=== PATIENT | female | born 1965 | race Caucasian/White ===

== ENCOUNTER → 2023-08-27 09:39 | Outpatient (REF) | payer OTHER, SELFPAY ==
[2023-08-27 10:23] LABS: INR 1.07; PT 13.8 Sec (11.4-14.6)
== END ==
LOC: REG 09:39
PROVIDERS: ATTENDING PHYSICIAN Internal Medicine Hematology & Oncology; FAMILY PHYSICIAN Student in an Organized Health Care Education/Training Program
DX: D68.61 Antiphospholipid syndrome (principal); Z01.818 Encounter for other preprocedural examination
CPT/HCPCS: 36415; 85610

== ENCOUNTER 2024-02-01 06:41 | Day surgery (SDC) | payer OTHER, SELFPAY ==
[2024-02-01] VITALS (7 sets, daily range): BP systolic 107–140; BP diastolic 75–95; BMI 38.1
[2024-02-01 13:03] LABS: Glucose - Point of Care 105 mg/dl (70-99)
[2024-02-01 15:23] LABS: Glucose - Point of Care 91 mg/dl (70-99)
[2024-02-01 17:26] LABS: Glucose - Point of Care 92 mg/dl (70-99)
== END 2024-02-01 18:30 | disposition home or self-care (01) ==
LOC: SDS 06:41
PROVIDERS: ATTENDING PHYSICIAN Internal Medicine Gastroenterology
DX: K63.89 Other specified diseases of intestine (principal); Z86.010 Personal history of colon polyps; K64.0 First degree hemorrhoids
CPT/HCPCS: 45390; 88305; 82962

== ENCOUNTER 2024-03-30 11:04 | Day surgery (SDC) | payer OTHER, SELFPAY ==
[2024-03-21 10:35] LABS: Hematocrit 41.4 % (37.0-47.0); Hemoglobin 14.3 g/dL (12.0-16.0); Mean Corp Hgb Conc. 34.5 g/dL (33.0-37.0); Mean Corpuscular Hgb 29.8 pg (27.0-31.0); Mean Corpuscular Volume 86.3 fL (81.0-99.0); Mean Platelet Volume 10.5 fL (7.4-10.4); Platelet Count 303 10^3/uL (130-400); Red Cell Dist. Width 13.2 % (11.5-14.5); White Blood Cell Count 5.2 10^3/uL (4.8-10.8)
[2024-03-21 10:37] VITALS: BMI 35.1
[2024-03-21 10:46] LABS: INR 2.25; PT 24.8 Sec (11.4-14.6)
[2024-03-21 10:47] LABS: APTT 59.9 Sec (23.4-35.0)
[2024-03-21 11:52] LABS: ALT (SGPT) 68 U/L (0-35); AST (SGOT) 46 U/L (14-36); Albumin 4.5 g/dl (3.5-5.0); Alkaline Phosphatase 65 U/L (38-126); Blood Urea Nitrogen 14 mg/dl (7-17); Calcium 10.1 mg/dl (8.4-10.2); Carbon Dioxide 32 mmol/L (22-30); Chloride 99 mmol/L (98-107); Estimated Creatinine Clearance 73 ml/min; Glucose 90 mg/dl (70-99); Potassium 4.1 mmol/L (3.5-5.1); Sodium 141 mmol/L (135-145); Total Bilirubin 0.9 mg/dl (0.2-1.3); Total Protein 7.7 g/dl (6.3-8.2); eGFR > 60.00
[2024-03-22 10:44] LABS: Glycohemoglobin (HgbA1c) 5.7 % (4.0-5.6)
--- NOTE | 2024-03-22 15:09 | PTCARENOTE ---
Abnormal EKG on 03/22/24. Dr. Gagnon made aware. No interventions needed.
--- NOTE | 2024-03-27 08:06 | PTCARENOTE ---
Patients 03/21 INR 2.25, PTT 52.9- Mary @ Dr. Marcos office notified
[2024-03-30] VITALS (16 sets, daily range): BP systolic 82–139; BP diastolic 45–98; BMI 35.1
[2024-03-30 11:18] LABS: Glucose - Point of Care 106 mg/dl (70-99)
[2024-03-30] MEDS: ENTEREG 12 MG PO (11:44)
[2024-03-30] MEDS: NEURONTIN 600 MG PO (11:45)
[2024-03-30] MEDS: TYLENOL 1000 MG PO (11:45)
[2024-03-30 13:17] LABS: Glucose - Point of Care 92 mg/dl (70-99)
[2024-03-30] MEDS: LOVENOX 40 MG SC (14:30)
--- NOTE | 2024-03-30 16:54 | W.IMMPOSTOP ---
Addendum entered and electronically signed by Alphonse Gill MD 03/30/24 17:10:
Patient's sister, Trena, updated via phone.
Original Note:
Surgical Immed Post Op Note
-
Primary Surgeon: Rodrigo Gill MD
Assisting Surgeon: ALLA Ashley
Pre-op Diagnosis: appendiceal mucocele
Post-op Diagnosis: same
Procedure Performed: 1) robotic appendectomy (to include a cuff of cecum) 2) intraoperative colonoscopy
Anesthesia Type: general plus local
Specimen / Cultures: appendix and cuff of cecum
Estimated Blood Loss: 5 cc
Complications: no immediate
Operative Findings: 1) some fullness at base of appendix 2) no obvious intraperitioneal nodules or mucus
Christensen in bladder.
Sending to med surg.
Holding anticoagulation for now.
[2024-03-30] MEDS: DILAUDID 0.5 MG IV (17:13)
[2024-03-30] MEDS: TORADOL 10 MG IV (18:24)
[2024-03-30] MEDS: TYLENOL 650 MG PO (20:25)
[2024-03-30] MEDS: LIPITOR 40 MG PO (21:37)
[2024-03-30] MEDS: CATAPRES 0.1 MG PO (21:38)
[2024-03-30] MEDS: DILAUDID 0.25 MG IV (21:56)
[2024-03-30] MEDS: NORMOSOL-R/PLASMALYTE-A 1000 IV (22:46)
[2024-03-31] MEDS: TORADOL 10 MG IV ×3 (00:07→12:25)
[2024-03-31] MEDS: TYLENOL 650 MG PO ×5 (00:07→16:34)
[2024-03-31 00:46] LABS: Hemoglobin 12.8 g/dL (12.0-16.0); Mean Corp Hgb Conc. 34.6 g/dL (33.0-37.0); Mean Corpuscular Hgb 30.8 pg (27.0-31.0); Mean Corpuscular Volume 88.9 fL (81.0-99.0); Mean Platelet Volume 9.7 fL (7.4-10.4); Platelet Count 196 10^3/uL (130-400); Red Blood Cell Count 4.16 10^6/uL (4.20-5.40); Red Cell Dist. Width 13.5 % (11.5-14.5); White Blood Cell Count 8.1 10^3/uL (4.8-10.8)
[2024-03-31 00:56] LABS: Blood Urea Nitrogen 10 mg/dl (7-17); Calcium 8.5 mg/dl (8.4-10.2); Carbon Dioxide 28 mmol/L (22-30); Chloride 99 mmol/L (98-107); Estimated Creatinine Clearance 98 ml/min; Glucose 186 mg/dl (70-99); Magnesium 2.2 mg/dl (1.6-2.3); Potassium 3.2 mmol/L (3.5-5.1); Sodium 139 mmol/L (135-145); eGFR > 60.00
[2024-03-31 01:54] LABS: % Basophils 0.2 % (0-2); % Immature Granulocytes 1.6 % (0-0.5); % Lymphocytes 7.4 % (20.5-51.1); % Monocytes 1.5 % (1.7-9.3); % Neutrophils 89.3 % (42.2-75.2); Absolute Immature Granulocytes 0.1 10^3/uL (0-0.05); Absolute Lymphocytes 0.6 10^3/uL (1.2-3.4); Absolute Monocytes 0.1 10^3/uL (0.1-0.6); Absolute Neutrophils 7.3 10^3/uL (1.4-6.5); Nucleated Red Blood Cells % 0 %
[2024-03-31 02:55] VITALS: BP 97/61
[2024-03-31] MEDS: SYNTHROID 88 MCG PO (05:01)
[2024-03-31 05:36] VITALS: BMI 35.5
[2024-03-31 06:32] LABS: % Basophils 0.2 % (0-2); % Immature Granulocytes 0.6 % (0-0.5); % Lymphocytes 10.6 % (20.5-51.1); % Monocytes 3.3 % (1.7-9.3); % Neutrophils 85.3 % (42.2-75.2); Absolute Lymphocytes 0.7 10^3/uL (1.2-3.4); Absolute Monocytes 0.2 10^3/uL (0.1-0.6); Absolute Neutrophils 5.6 10^3/uL (1.4-6.5); Hematocrit 35.6 % (37.0-47.0); Hemoglobin 12.1 g/dL (12.0-16.0); INR 1.03; Mean Corpuscular Hgb 29.4 pg (27.0-31.0); Mean Corpuscular Volume 86.6 fL (81.0-99.0); Mean Platelet Volume 10.5 fL (7.4-10.4); Nucleated Red Blood Cells % 0 %; PT 13.5 Sec (11.4-14.6); Platelet Count 212 10^3/uL (130-400); Red Blood Cell Count 4.11 10^6/uL (4.20-5.40); Red Cell Dist. Width 13.5 % (11.5-14.5); White Blood Cell Count 6.6 10^3/uL (4.8-10.8)
[2024-03-31 06:54] LABS: Blood Urea Nitrogen 10 mg/dl (7-17); Calcium 8.5 mg/dl (8.4-10.2); Carbon Dioxide 28 mmol/L (22-30); Chloride 99 mmol/L (98-107); Estimated Creatinine Clearance 98 ml/min; Glucose 144 mg/dl (70-99); Magnesium 2.3 mg/dl (1.6-2.3); Potassium 3.4 mmol/L (3.5-5.1); Sodium 136 mmol/L (135-145); eGFR > 60.00
[2024-03-31 07:01] VITALS: BP 104/64
[2024-03-31 07:50] VITALS: BP 104/64
[2024-03-31] MEDS: PROTONIX 40 MG PO (08:14)
[2024-03-31] MEDS: Hygroton 25 MG PO (08:14)
[2024-03-31] MEDS: CATAPRES 0.1 MG PO (08:14)
[2024-03-31] MEDS: KCL 160 MEQ IV (09:12)
[2024-03-31] MEDS: NORMOSOL-R/PLASMALYTE-A 1000 IV (09:13)
[2024-03-31] MEDS: DILAUDID 0.25 MG IV (09:43)
[2024-03-31 11:25] VITALS: BP 114/79
--- NOTE | 2024-03-31 11:36 | W.PN.CRS1 ---
Today's Communication / Plan
-
Low residue
Discharge later today if tolerates
Lovenox to Coumadin bridge at home
Assessment/Plan
-
POD #1 1) robotic appendectomy (to include a cuff of cecum) 2) intraoperative colonoscopy
-Advance to low residue diet
-Voiding post Christensen removal
-Out of bed as tolerated
-Pain control: Tylenol and Toradol, Dilaudid as needed
-OR pathology pending
-Lovenox 40 mEq tonight, will order a Lovenox bridge to Coumadin as an outpatient
-I updated the patient's sister, Trena, with all of the above as well as discharge instructions and answered all questions
-Okay for discharge if tolerates low residue diet. All discharge instructions discussed with patient including medications activity levels and follow-up. All questions answered.
Subjective Data
Procedure
1) robotic appendectomy (to include a cuff of cecum) 2) intraoperative colonoscopy
Subjective Data
Date of Service: March 31, 2024
Patient states she is very sore when she moves or coughs. But otherwise she does not have pain at baseline. She feels congested. She has no nausea or vomiting.
Objective Data
-
Vital Signs
Temp Pulse Resp BP Pulse Ox
97.7 F 68 18 114/79 98
03/31/24 11:25 03/31/24 11:25 03/31/24 11:25 03/31/24 11:25 03/31/24 11:25
Intake & Output
03/30/24 03/31/24 04/01/24
06:59 06:59 06:59
Intake Total 1880 / 1880 640 / 640
Output Total 500 / 500
Balance 1380 / 1380 640 / 640
Intake:
Oral fluids 720 / 720 480 / 480
IV fluids (Total) 1160 / 1160
normosol 200 / 200
IV piggybacks 160 / 160
Output:
Urine, Christensen 500 / 500
Other:
Number of approximated MODERATE 2
amounts of urine
Number of approximated LARGE 1
amounts of urine
Lab Results
03/31/24 04:42
03/31/24 04:42
Physical Exam
-
General: No Acute Distress and AOx3
Abdomen: Soft, Non Distended and Tender (Mild around incisions)
Skin: Warm and Dry
Incision: Clear, Dry, Intact
--- NOTE | 2024-03-31 12:55 | W.DS.TRANS ---
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
-
Discharge Instructions:
Sleep Apnea Risk Intermediate
Discharge Diagnosis/Procedures 1) robotic appendectomy (to include a cuff of
cecum) 2) intraoperative colonoscopy
Diet Low Residue
Activity No strenuous activity
Additional Activity No lifting over 10 pounds (gallon of milk)
Bathing Restrictions OK to Shower
Wound Care Allow glue to naturally fall off. Do not pick
at incisions.
Instructions: Low Fiber Diet
How to give an anticoagulant shot
Stand-Alone Forms:
Changes to Home Medications: Yes
Discharge Medications:
DC Medications w/original date entered in Per[facility]
atorvastatin 40 mg tablet 40 mg PO HS High Cholesterol 02/01/24
chlorthalidone 25 mg tablet 25 mg PO DAILY Blood Pressure 02/01/24
clonidine HCl 0.1 mg tablet 0.1 mg PO BID Blood Pressure 02/01/24
levothyroxine 88 mcg tablet 88 mcg PO DAILY Thyroid 02/01/24
metformin 500 mg tablet,extended release 24 hr 500 mg PO BID Diabetes 02/01/24
warfarin 6 mg tablet 6 mg PO DAILY Blood Clot Prevention/Tx 02/01/24
estradiol 0.01% (0.1 mg/gram) vaginal cream 1 g vaginal QWEEK hormone cream 03/23/24
tretinoin 0.025 % topical cream 1 applic topical HS Anti-Inflammatory 03/23/24
warfarin 6 mg tablet 7 mg PO DAILY Blood Clot Prevention/Tx 03/23/24
sodium sul 1.479 gram-potas ch 0.188 gram-magnes sul 0.225 gram tablet (Sutab) 0 tab PO PER PKG DIR pre op 03/29/24
levocetirizine 5 mg tablet 5 mg PO QPM PRN sleep 03/30/24
semaglutide (weight loss) 0.25 mg/0.5 mL subcutaneous pen injector (Wegovy) 0.25 mg SC QWEEK OBESITY 03/30/24
enoxaparin 80 mg/0.8 mL subcutaneous syringe (Lovenox) 80 mg (0.8 mL) SC Q12H 10 days #16 mL 03/31/24
tramadol 50 mg tablet 50 mg PO Q6H PRN Pain #20 tabs 03/31/24
Home Medication Changes
enoxaparin 80 mg/0.8 mL subcutaneous syringe (Lovenox) 80 mg (0.8 mL) SC Q12H 10 days #16 mL 03/31/24
tramadol 50 mg tablet 50 mg PO Q6H PRN Pain #20 tabs 03/31/24
Pending Results: Yes
Additional Pending Results:
OR pathology
--- NOTE | 2024-03-31 13:59 | CM ---
Met with pt at bedside
Reports she lives with her sister and brother in law in a 2 story home;0 steps to enter, 10 steps to 2nd fl
Independent in baseline, on disability - h/o CVA
DME - none
SNF/HH - no past hx
Has ride at discharge
PCP - Eddie Saenz
Pharm - [facility]
Discussed IMM
Plan - anticipate home no needs
[2024-03-31 15:22] VITALS: BP 97/56
--- NOTE | 2024-04-04 13:05 | W.DCSUMMARY ---
Discharge Summary
Discharge Data
Date of Admission: 03/30/24
Date of Discharge: 03/31/24
-
Pending Results: Yes
Additional Pending Results:
OR pathology
Hospital Course
58-year-old female presented for a robotic appendectomy and intraoperative colonoscopy by Dr. Alphonse Gill on 03/30/2024 due to an appendiceal mucocele. This had previously been discovered on colonoscopy by Dr. Meneses on 02/01/2024. The patient
tolerated the procedure well she is brought back to the medical surge floor. She was started on low residue diet postop day 1. Her Christensen was removed and she voided without difficulty. Her pain was well-controlled. She was on Coumadin as an
outpatient and a Lovenox bridge was ordered with follow-up of her INR every 2 to 3 days. She is to stop Lovenox once her INR is therapeutic. All discharge directions discussed with patient and her sister via telephone, all questions were answered.
Discharge Plan
-
Patient Disposition: Home (Routine Discharge)
Discharge Diagnosis/Procedures: 1) robotic appendectomy (to include a cuff of cecum) 2) intraoperative colonoscopy
Diet: Low Residue
Activity: No strenuous activity
Additional Activity: No lifting over 10 pounds (gallon of milk)
Bathing Restrictions: OK to Shower
Wound Care: Allow glue to naturally fall off. Do not pick at incisions.
Instructions: Low Fiber Diet, How to give an anticoagulant shot
Referrals:
Alphonse Gill MD [Active] - in two weeks
Eddie Ortega Jr., DO [Family Provider] -
Additional Discharge Medication Instructions: You have been prescribed a Lovenox to Coumadin bridge. Based on your current weight, you are to take Lovenox 80 meq twice daily. You are to check your INR every 2 to 3 days. When your INR is between
your therapeutic range, stop taking Lovenox. You have been prescribed 8 days of Lovenox. If you need more Lovenox, please call our office 3 days prior to you running out and we will send a refill.
Start your first Lovenox injection tonight
Restart your Coumadin tomorrow
Tylenol as needed for pain. Maximum dose of Tylenol is 4,000mg in 24 hours. Tramadol has also been prescribed as needed for pain.
Prescriptions:
New
tramadol 50 mg tablet
50 mg PO Q6H PRN (Reason: Pain) Qty: 20 0RF
enoxaparin [Lovenox] 80 mg/0.8 mL syringe
80 mg SC Q12H 10 Days Qty: 16 0RF
Continued
atorvastatin 40 mg Tablet
40 mg PO HS
clonidine HCl 0.1 mg Tablet
0.1 mg PO BID
chlorthalidone 25 mg Tablet
25 mg PO DAILY
levothyroxine 88 mcg Tablet
88 mcg PO DAILY
metformin 500 mg Tablet Extended Release 24 Hr
500 mg PO BID
Patient Comments:
patient holding start of med until after surgery
tretinoin 0.025 % Cream
1 applic TOPICAL HS
Patient Comments:
3times/week
estradiol 0.01 % (0.1 mg/gram) Cream
1 g VAGINAL QWEEK
Sutab 1.479-0.188- 0.225 gram Tablet
0 tab PO PER PKG DIR
levocetirizine 5 mg Tablet
5 mg PO QPM PRN (Reason: sleep)
Wegovy 0.25 mg/0.5 mL Pen Injector
0.25 mg SC QWEEK
Held
warfarin 6 mg Tablet
6 mg PO DAILY
Hold Instructions: Resume on 04/01/24.
Patient Comments:
Field,M,T,W,Th will stop 03/25 as directed by
warfarin 6 mg Tablet
7 mg PO DAILY
Hold Instructions: Resume on 04/01/24.
Patient Comments:
Fr,Sa
Discontinued
Lovenox
90 mg SC Q12H
Patient Comments:
per patient will start 03/25 - 03/29
ferrous sulfate 325 mg (65 mg iron) Tablet
325 mg PO .3TIMES WEEK
Patient Comments:
3 times a week
metronidazole 500 mg Tablet
500 mg PO DIRECTED
Patient Comments:
tokk at 1400,1500,and 2200 on 03/29/24
neomycin 500 mg Tablet
1 g PO DIRECTED
Patient Comments:
took at 1400,1500,and 2200 on 03/29/24
Discharge Orders:
Discharge Patient (As Directed); Ordered 03/31/24
Ordered By: Jaclyn Forbes
Discharge Date and Time
Discharge Date/Time: 03/31/24 18:05
Print Language: ARABIC
== END 2024-03-31 18:05 | disposition home or self-care (01) | DRG 331 ==
LOC: PACU 11:04
PROVIDERS: Registered Nurse; ATTENDING PHYSICIAN Surgery; FAMILY PHYSICIAN Family Medicine
PROC: 0DTJ4ZZ Resection of Appendix, Percutaneous Endoscopic Approach (ICD-10-PCS; 2024-03-30)
PROC: 0DBH4ZZ Excision of Cecum, Percutaneous Endoscopic Approach (ICD-10-PCS; 2024-03-30)
PROC: 8E0X4CZ Robotic Assisted Procedure of Upper Extremity, Percutaneous Endoscopic Approach (ICD-10-PCS; 2024-03-30)
PROC: 0DJD8ZZ Inspection of Lower Intestinal Tract, Via Natural or Artificial Opening Endoscopic (ICD-10-PCS; 2024-03-30)
DX: C18.1 Malignant neoplasm of appendix (principal); I10 Essential (primary) hypertension; E03.9 Hypothyroidism, unspecified; E66.9 Obesity, unspecified; Z79.01 Long term (current) use of anticoagulants; Z79.890 Hormone replacement therapy; Z79.899 Other long term (current) drug therapy; Z85.820 Personal history of malignant melanoma of skin; Z88.8 Allergy status to other drugs, medicaments and biological substances
CPT/HCPCS: 44970; 45378; 88304; 36415; 80048; 80053; 82962; 83036; 83735; 85025; 85027; 85610; 85730; 86850; 86900; 86901; 93005; J1335

== ENCOUNTER → 2024-11-07 13:57 | Outpatient (REF) | payer OTHER, SELFPAY | LOC: HWRCS 13:57 | PROVIDERS: ATTENDING PHYSICIAN Internal Medicine Interventional Cardiology; FAMILY PHYSICIAN Family Medicine | DX: I10 Essential (primary) hypertension (principal) | CPT/HCPCS: 93306 ==

== ENCOUNTER → 2025-02-13 11:12 | Outpatient (REF) | payer OTHER, SELFPAY | LOC: RAD 11:12 | PROVIDERS: ATTENDING PHYSICIAN Internal Medicine Pulmonary Disease | DX: H34.232 Retinal artery branch occlusion, left eye (principal); G47.33 Obstructive sleep apnea (adult) (pediatric); I10 Essential (primary) hypertension; C18.2 Malignant neoplasm of ascending colon; R05.9 Cough, unspecified; R53.83 Other fatigue | CPT/HCPCS: 71046 ==

== ENCOUNTER → 2025-03-30 10:52 | Outpatient (REF) | payer OTHER, SELFPAY | LOC: RAD 10:52 | PROVIDERS: ATTENDING PHYSICIAN Internal Medicine Pulmonary Disease; FAMILY PHYSICIAN Family Medicine | DX: I10 Essential (primary) hypertension (principal); H34.232 Retinal artery branch occlusion, left eye; G47.33 Obstructive sleep apnea (adult) (pediatric); C18.2 Malignant neoplasm of ascending colon; M35.00 Sjogren syndrome, unspecified | CPT/HCPCS: 71250 ==

== ENCOUNTER → 2025-04-24 09:01 | Outpatient (REF) | payer MEDICARE, SELFPAY | LOC: WDC 09:01 | PROVIDERS: ATTENDING PHYSICIAN Family Medicine; REFERRING PHYSICIAN Obstetrics & Gynecology | DX: M25.512 Pain in left shoulder (principal); N63.10 Unspecified lump in the right breast, unspecified quadrant; N63.11 Unspecified lump in the right breast, upper outer quadrant | CPT/HCPCS: 73030; 76642; 77062; 77066 ==